=== PATIENT | male | born 1990 ===

== ENCOUNTER 2021-07-04 13:58 | Emergency (ER) | payer BC ==
[~2021-07-04] VITALS: Ht 180.3 cm; Wt 104.3 kg
[2021-07-04 14:17] VITALS: BP 164/98
== END 2021-07-04 21:26 | disposition left against medical advice (07) ==
LOC: ER 13:58
DX: K08.89 Other specified disorders of teeth and supporting structures (principal); J02.9 Acute pharyngitis, unspecified; Z20.822 Contact with and (suspected) exposure to COVID-19; Z53.21 Procedure and treatment not carried out due to patient leaving prior to being seen by health care provider
CPT/HCPCS: 36415; 87426